=== PATIENT | female | born 1930 | race Two or more races ===

== ENCOUNTER 2017-06-24 18:03 | Observation (INO) | payer MEDICAID, OTHER ==
[2017-06-24] MEDS ORDERED: ASPIRIN 81 MG CHEWABLE TAB PO ONE (18:16)
[2017-06-24] MEDS ORDERED: NITROGLYCERIN 0.4 MG BTL SL PRN (18:16)
--- NOTE | 2017-06-24 18:17 | CPEKG ---
Heart Rate: 128 RR Interval: 469 QRSD Interval: 82 QT Interval: 356 QTC Interval: 520 QRS [place]: 18 T Wave [place]: 165 EKG Severity - ABNORMAL ECG - EKG Impression: ATRIAL FIBRILLATION, V-RATE 94-163 EKG Impression: MULTIPLE VENTRICULAR PREMATURE COMPLEXES EKG Impression: REPOLARIZATION ABNORMALITY, PROB RATE RELATED EKG Impression: PROLONGED QT INTERVAL EKG Impression: Similar to previous Electronically Signed By: Nick Dailey 24-Jun-2017 18:20:58
[2017-06-24] MEDS ORDERED: FUROSEMIDE 40 MG/4 ML VIAL IVP ONE (18:19)
--- NOTE | 2017-06-24 18:19 | EDPHY ---
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 No fever. No cough. She denies history of COPD or asthma but does wear oxygen at night. She takes Lasix at home but has noticed some increased swelling in her ankles last few days. Her breathing is worse when she lays flat. No nausea vomiting. She did feel diaphoretic at home. Her symptoms began while she was sitting. She does not have any chest pain. REVIEW OF SYSTEMS: Constitutional: denies: chills, fever, recent illness, recent injury EENTM: denies: blurred vision, double vision, nose congestion Respiratory: See HPI Cardiac: See HPI Gastrointestinal/Abdominal: denies: abdominal pain, diarrhea, nausea, vomiting, blood streaked stools Genitourinary: denies: dysuria, frequency, hematuria, pain Musculoskeletal: denies: joint pain, muscle pain Skin: denies: lesions, rash, jaundice, bruising Neurological: denies: headache, numbness, paresthesia, tingling, dizziness, weakness Hematologic/Lymphatic: denies: blood clots, easy bleeding, easy bruising Immunologic/allergic: denies: HIV/AIDS, transplant EXAM: GENERAL: Well-appearing, well-nourished and in no acute distress. HEAD: Atraumatic, normocephalic. EYES: Pupils equal round and reactive to light, extraocular movements intact, sclera anicteric, conjunctiva are normal. ENT: TMs normal, nares patent, oropharynx clear without exudates. Moist mucous membranes. NECK: Normal range of motion, supple without lymphadenopathy or JVD. LUNGS: Bilateral rales HEART: Irregular rhythm slightly tachycardic without murmurs, rubs or gallops. ABDOMEN: Soft, nontender, normoactive bowel sounds. No guarding, no rebound. No masses appreciated. BACK: No CVA tenderness, no spinal tenderness, step-offs or deformities EXTREMITIES: Normal range of motion, no pitting or edema. No clubbing or cyanosis. NEUROLOGICAL: Cranial nerves II through XII grossly intact. Normal speech, normal gait. 5/5 strength, normal movement in all extremities, normal sensation PSYCH: Normal mood, normal affect. SKIN: Warm, dry, normal turgor, no visible rashes or lesions. Source: Patient Exam Limitations: No limitations - Personal History Current Tetanus/Diphtheria Vaccine: Unsure Current Tetanus Diphtheria and Acellular Pertussis (TDAP): Unsure - Medical/Surgical History Hx Asthma: No Hx Chronic Respiratory Disease: No Hx Diabetes: No Hx Cardiac Disease: Yes Hx Renal Disease: No Hx Cirrhosis: No Hx Alcoholism: No Hx HIV/AIDS: No Hx Splenectomy or Spleen Trauma: No Other PMH: AFIB, HTN, arthritis - Social History Smoking Status: Former smoker Alcohol Use: Sober Drug Use: None Constitutional: Initial Vital Signs Temperature (C) 37.2 C 06/24/17 18:10 Heart Rate 112 H 06/24/17 18:10 Respiratory Rate 28 H 06/24/17 18:10 Blood Pressure 185/119 H 06/24/17 18:10 O2 Sat (%) 92 06/24/17 18:10 O2 Delivery Mode Nasal Cannula O2 (L/minute) 2 Allergies/Adverse Reactions: No Known Allergies Allergy (Verified 06/24/17 18:31) Home Medications: Medication Instructions Recorded Alprazolam 0.5mg Daily 12/04/11 Citalopram Hbr 10mg Daily 12/04/11 Furosemide 20mg Daily 12/04/11 Levothyroxine 12/04/11 Lisinopril [Zestril 40 mg (RX)] 40 mg PO DAILY 12/04/11 Metoprolol 100mg Daily 12/04/11 Pravastatin 40mg Daily 12/04/11 Warfarin 3mg 12/04/11 Alendronate Sodium 06/24/17 Tramadol HCl 06/24/17 Medical Decision Making - Diagnostics EKG Interpretation: An EKG obtained and was read and documented in trace view. Please see trace view for full reading and report. Atrial fibrillation, no acute ST changes. T- wave inversion diffusely Imaging Results: Imaging Impressions Chest X-Ray 06/24/17 18:17 Impression: Congestive heart failure.. Imaging: I viewed and interpreted images myself (Pulmonary edema, cardiomegaly) ED Course/Re-evaluation: 7:00 p.m. the patient is feeling better. Her blood pressure is decreased. We reviewed her test results. Her troponin is slightly elevated. Discussed with Dr. Leal who will admit to the medical service. We will transfer to [facility]. Differential Diagnosis: Partial list of the Differential diagnosis considered include but were not limited to; CHF, acute coronary disease, pneumonia, pulmonary edema and although unlikely based on the history and physical exam, I also considered PE, dissection, aneurysm, COPD exacerbation. Critical Care Time: Critical care time spent by me, Dr. Dailey exclusive with this patient was 35 minutes, exclusive of the PA time exclusive of procedures. The organ system that was at risk was cardiovascular and I gave diagnosis, treatment and admission to prevent worsening of the patient's condition - Data Points Laboratory Results: Laboratory Results 06/24/17 18:25 06/24/17 18:25 06/24/17 06/24/17 06/24/17 18:25 18:25 18:25 WBC 3.83 10^3/uL 10^3/uL (3.80-9.50) RBC 3.16 10^6/uL L 10^6/uL (4.18-5.33) Hgb 10.6 g/dL L g/dL (12.6-16.3) Hct 31.6 % L % (38.0-47.0) MCV 100.0 fL H fL (81.5-99.8) MCH 33.5 pg pg (27.9-34.1) MCHC 33.5 g/dL g/dL (32.4-36.7) RDW 14.1 % % (11.5-15.2) Plt Count 92 10^3/uL L 10^3/uL (150-400) MPV 10.1 fL fL (8.7-11.7) Neut % (Auto) 45.7 % % (39.3-74.2) Lymph % (Auto) 33.7 % % (15.0-45.0) [place] % (Auto) 17.5 % H % (4.5-13.0) Eos % (Auto) 2.3 % % (0.6-7.6) Baso % (Auto) 0.5 % % (0.3-1.7) Nucleat RBC Rel Count 0.0 % % (0.0-0.2) Absolute Neuts (auto) 1.75 10^3/uL 10^3/uL (1.70-6.50) Absolute Lymphs (auto) 1.29 10^3/uL 10^3/uL (1.00-3.00) Absolute Monos (auto) 0.67 10^3/uL 10^3/uL (0.30-0.80) Absolute Eos (auto) 0.09 10^3/uL 10^3/uL (0.03-0.40) Absolute Basos (auto) 0.02 10^3/uL 10^3/uL (0.02-0.10) Absolute Nucleated RBC 0.00 10^3/uL 10^3/uL (0-0.01) Immature Gran % 0.3 % % (0.0-1.1) Immature Gran # 0.01 10^3/uL 10^3/uL (0.00-0.10) PT 25.1 SEC H SEC (12.0-15.0) INR 2.34 H (0.83-1.16) APTT 48.8 SEC H SEC (23.0-38.0) Sodium 134 mEq/L L mEq/L (135-145) Potassium 4.2 mEq/L mEq/L (3.5-5.2) Chloride 98 mEq/L mEq/L (97-110) Carbon Dioxide 29 mEq/l mEq/l (22-31) Anion Gap 7 mEq/L L mEq/L (8-16) BUN 16 mg/dL mg/dL (7-23) Creatinine 0.6 mg/dL mg/dL (0.6-1.0) Estimated GFR > 60 Glucose 151 mg/dL H mg/dL (70-100) Calcium 8.6 mg/dL mg/dL (8.5-10.4) Troponin I 0.046 ng/mL H ng/mL (0.000-0.034) NT-Pro-B Natriuret Pep 4440 pg/mL H pg/mL (0-450) Medications Given: Nitroglycerin (Nitrostat) 0.4 mg SL Q5M PRN PRN Reason: Chest Pain Last Admin: 06/24/17 18:31 Dose: 0.4 mg Discontinued Medications Aspirin (Aspirin) 324 mg PO EDNOW ONE Stop: 06/24/17 18:17 Last Admin: 06/24/17 18:39 Dose: 324 mg Furosemide (Lasix Injection) 40 mg IVP EDNOW ONE Stop: 06/24/17 18:20 Last Admin: 06/24/17 18:34 Dose: 40 mg Departure - Departure Disposition: [facility] Inpatient Acute Clinical Impression: Congestive heart failure Qualifiers: Heart failure type: unspecified Heart failure chronicity: acute on chronic Qualified Code(s): I50.9 - Heart failure, unspecified Condition: Fair
[2017-06-24 18:31] LABS: PLATELET COUNT 92 10^3/uL (150-400)
[2017-06-24 18:47] LABS: INR 2.34 (0.83-1.16); PROTIME(PATIENT) 25.1 SEC (12.0-15.0)
[2017-06-24] MEDS ORDERED: ACETAMINOPHEN 325 MG TAB PO PRN (23:02)
--- NOTE | 2017-06-24 23:48 | PDGENHP ---
History and Physical - Chief Complaint SOB, CP - History of Present Illness The patient is an 87-year-old female with a history of myocardial infarction 20 years ago but no stents also atrial fibrillation on Coumadin who p/w shortness of breath over the last few days and pedal edema. No fever. No cough. She denies history of COPD or asthma but does wear oxygen at night (1.5 L). She takes Lasix at home but has noticed some increased swelling in her ankles last few days. Her breathing is worse when she lays flat. No nausea vomiting. She did feel diaphoretic at home. Her symptoms began while she was sitting. She felt some chest discomfort on arrival to the E.D. IN the E.D. she was given Lasix with significant improvement to her sx's. She appear comfortable at this time. CXR showed CHF, personally reviewed EKG is c/w AFib, rate controlled PMhx: AFIB, HTN, arthritis, CHF, CADm chronic anticagulation, dementia Soc: former smoker, she has 4 daughters and 2 sons FmHx: parents are History Information - Allergies/Home Medication List Allergies/Adverse Reactions: No Known Allergies Allergy (Verified 06/24/17 18:31) Home Medications: Alprazolam 0.5mg Daily 12/04/11 [Last Taken Unknown] Citalopram Hbr 10mg Daily 12/04/11 [Last Taken Unknown] Furosemide 20mg Daily 12/04/11 [Last Taken Unknown] Levothyroxine 12/04/11 [Last Taken Unknown] Lisinopril [Zestril 40 mg (RX)] 40 mg PO DAILY 12/04/11 [Last Taken Unknown] Metoprolol 100mg Daily 12/04/11 [Last Taken Unknown] Pravastatin 40mg Daily 12/04/11 [Last Taken Unknown] Warfarin 3mg 12/04/11 [Last Taken Unknown] Alendronate Sodium 06/24/17 [Last Taken Unknown] Tramadol HCl 06/24/17 [Last Taken Unknown] I have personally reviewed and updated: medical history, social history - Social History Smoking Status: Former smoker Alcohol Use: Sober Drug Use: None Review of Systems Review of Systems: ROS: 10pt was reviewed & negative except for what was stated in HPI & below Physical Exam Physical Exam: Temp Pulse Resp BP Pulse Ox 37.2 C 104 H 18 136/74 H 99 06/24/17 18:10 06/24/17 22:13 06/24/17 22:13 06/24/17 22:13 06/24/17 22:13 O2 (L/minute) 2 Constitutional: no apparent distress Eyes: PERRL, EOMI Ears, Nose, Mouth, Throat: moist mucous membranes, hearing normal Cardiovascular: irregularly irregular, edema (trace) Respiratory: reduced air movement Gastrointestinal: normoactive bowel sounds, soft, non-tender abdomen Skin: warm Neurologic: No AAOx3 Psychiatric: interacting appropriately, not anxious, encephalopathic Lymph, Heme, Immunologic: No petechiae Lab Data & Imaging Review 06/24/17 18:25 06/24/17 18:25 WBC 3.83 10^3/uL (3.80-9.50) 06/24/17 18:25 RBC 3.16 10^6/uL (4.18-5.33) L 06/24/17 18:25 Hgb 10.6 g/dL (12.6-16.3) L 06/24/17 18:25 Hct 31.6 % (38.0-47.0) L 06/24/17 18:25 MCV 100.0 fL (81.5-99.8) H 06/24/17 18:25 MCH 33.5 pg (27.9-34.1) 06/24/17 18:25 MCHC 33.5 g/dL (32.4-36.7) 06/24/17 18:25 RDW 14.1 % (11.5-15.2) 06/24/17 18:25 Plt Count 92 10^3/uL (150-400) L 06/24/17 18:25 MPV 10.1 fL (8.7-11.7) 06/24/17 18:25 Neut % (Auto) 45.7 % (39.3-74.2) 06/24/17 18:25 Lymph % (Auto) 33.7 % (15.0-45.0) 06/24/17 18:25 [place] % (Auto) 17.5 % (4.5-13.0) H 06/24/17 18:25 Eos % (Auto) 2.3 % (0.6-7.6) 06/24/17 18:25 Baso % (Auto) 0.5 % (0.3-1.7) 06/24/17 18:25 Nucleat RBC Rel Count 0.0 % (0.0-0.2) 06/24/17 18:25 Absolute Neuts (auto) 1.75 10^3/uL (1.70-6.50) 06/24/17 18:25 Absolute Lymphs (auto) 1.29 10^3/uL (1.00-3.00) 06/24/17 18:25 Absolute Monos (auto) 0.67 10^3/uL (0.30-0.80) 06/24/17 18:25 Absolute Eos (auto) 0.09 10^3/uL (0.03-0.40) 06/24/17 18:25 Absolute Basos (auto) 0.02 10^3/uL (0.02-0.10) 06/24/17 18: Absolute Nucleated RBC 0.00 10^3/uL (0-0.01) 06/24/17 18: Immature Gran % 0.3 % (0.0-1.1) 06/24/17 18: Immature Gran # 0.01 10^3/uL (0.00-0.10) 06/24/17 18:25 PT 25.1 SEC (12.0-15.0) H 06/24/17 18:25 INR 2.34 (0.83-1.16) H 06/24/17 18:25 APTT 48.8 SEC (23.0-38.0) H 06/24/17 18:25 Sodium 134 mEq/L (135-145) L 06/24/17 18:25 Potassium 4.2 mEq/L (3.5-5.2) 06/24/17 18:25 Chloride 98 mEq/L (97-110) 06/24/17 18:25 Carbon Dioxide 29 mEq/l (22-31) 06/24/17 18:25 Anion Gap 7 mEq/L (8-16) L 06/24/17 18:25 BUN 16 mg/dL (7-23) 06/24/17 18:25 Creatinine 0.6 mg/dL (0.6-1.0) 06/24/17 18:25 Estimated GFR > 60 06/24/17 18:25 Glucose 151 mg/dL (70-100) H 06/24/17 18:25 Calcium 8.6 mg/dL (8.5-10.4) 06/24/17 18:25 Troponin I 0.046 ng/mL (0.000-0.034) H 06/24/17 18:25 NT-Pro-B Natriuret Pep 4440 pg/mL (0-450) H 06/24/17 18:25 Assessment & Plan Assessment: #CHF exacerbation, unclear if systolic or diastolic #Indeterminate troponin, no active CP at this time #Acute Hypoxic respiratory Failure, improving #Afib, chronic, rate controlled with Metoprol #chronic Anticoagulation on warfarin, INR at [facility] #Anemia, with macrocytosis #Prolonged QT Plan: Observation much improved after IV Lasix, will schedule PO for the a.m TTE serial trops tele check Mg avoid meds which prolong the QT cont Metoprolol 50mg BID cont Warfarin, pharmacy to dose DNR confirmed at bedside
[2017-06-25] MEDS: METOPROLOL TARTRATE 50 MG TAB PO SCH ×2 (00:15→08:47)
[2017-06-25 04:52] LABS: PLATELET COUNT 79 10^3/uL (150-400)
[2017-06-25 04:59] LABS: INR 2.85 (0.83-1.16); PROTIME(PATIENT) 29.8 SEC (12.0-15.0)
[2017-06-25] MEDS ORDERED: FUROSEMIDE 40 MG TAB PO SCH (09:00)
--- NOTE | 2017-06-25 10:59 | ECHO ---
[email or web address] [address] [address] Main: [phone] Fax: Transthoracic Echocardiogram Name: TIN RUSSO MR#: [id number] Study Date: 06/25/2017 Study Time: 08:50 AM Date of : 1930 Age: 87 year(s) Height: ( ) Weight: ( ) BSA: Gender: Female Examination: Echo Indication: CHF Image Quality: Adequate Contrast: Requested by: Alan Leal BP: 137 mmHg/75 mmHg Heart Rate: Rhythm: Atrial fibrillation Indication: CHF Procedure Staff Tack Maker: Vicky Jennings MEGA Reading Physician: Cristiano Schwarz MD Requesting Provider: Measurements: Chambers Valvular Assessment AV/MV Valvular Assessment TV/PV Normal Normal Normal Name Value Range Name Value Range Name Value Range Ao Jessenia (MM): 3.5 cm (2.2 cm-3.7 AV Vmax: 1.03 m/s (1 m/s-1.7 TR Vmax: 2.82 mm/s ( - ) cm) m/s) TR PGmax: 32 mmHg ( - ) IVSd (2D): 0.7 cm (0.6 cm-1.1 AV maxP mmHg ( - ) syst. PAP: 42 mmHg ( - ) cm) LVOT Vmax: 0.83 m/s (0.7 m/s-1.1 PV Vmax: 0.90 m/s (0.6 m/s-0.9 LVDd (2D): 4.7 cm (3.9 cm-5.3 m/s) m/s) cm) MV E Vmax: 1.08 m/s ( - ) PV PGmax: 3 mmHg ( - ) LVDs (2D): 3.1 cm (2.1 cm-4 cm) LVPWd (2D): 0.9 cm ( - ) LVEF (BP): 67 % (>=55 %) RVDd(2D): 3.3 cm (1.9 cm-3.8 cmmm) Continued Measurements: Chambers Valvular Assessment AV/MV Valvular Assessment TV/PV Name Value Name Value Name Value LADs: 3.6 cm MV DecTime: 180 m/s CVP (est.): 10 mmHg LADs Lon.5 cm MV E' Septal: 0.06 m/s LA Area: 25.9 cm2 MV E/E' Septal: 17.90 LA Volume: 94 ml MV E/E' Lateral: 15.40 RA Area: 21.0 cm2 Additional Vessels Patient: TIN RUSSO Study Date: 06/25/2017 Page 1 of 2 08:50 AM Name Value Ao Ascendin.2 cm Findings: Left Ventricle: Normal size left ventricle. Normal global systolic LV function. EF is 67 %. Unable to assess diastolic dysfunction. Apical hypertrophy noted. Basal inferoseptal and inferior henning are thin and akinetic consistent with old ND. Right Ventricle: Normal size right ventricle. Normal RV function. Left Atrium: The left atrium is severely dilated. Small left to right shunt across the interatrial septum noted with color flow Doppler. LA index 62.7 ml/m2. Right Atrium: The right atrium is moderately dilated. Mitral Valve: There is mild thickening of the mitral valve leaflets. Mild-moderate mitral annular calcification. Mild to moderate mitral regurgitation. No mitral stenosis is present. Aortic Valve: The aortic valve is tri-leaflet and functions normally. Mild aortic cusp calcification is noted. No aortic valve stenosis is present. Trivial aortic valve regurgitation. Tricuspid Valve: The tricuspid valve is normal in appearance and function. Moderate tricuspid regurgitation is present. Right ventricular systolic pressure measures 42mmHg. The pulmonary artery pressure is mildly increased. Pulmonic Valve: The pulmonic valve is normal in appearance and function. Mild pulmonic valve regurgitation is noted. Aorta: Normal size aortic root measuring 3.5 cm. Normal size ascending aorta measuring 3.2 cm. IVC: The IVC is dilated. Pericardium: No pericardial effusion. (No Signature Object) Patient: TIN RUSSO Study Date: 06/25/2017 Page 2 of 2 08:50 AM [id number]
[2017-06-25] MEDS ORDERED: ACETAMINOPHEN 325 MG TAB PO PRN (11:46)
--- NOTE | 2017-06-25 13:18 | ASMTCASEMG ---
Living Arrangements What is your living Answers: With Spouse arrangement? Who do you live with? Type Of Residence What kind of residence do Answers: Apartment you live in? Discharge Plan Comments Coordination Status Comments Notes: Pts case discussed in morning rounds. Pt is a 87 y/o female admitted for CHF exacerbation. Pt is bulgarian speaking only. Pt lives at home w/ her and her daughter. PT has been ordered and awaiting recommendations. Needs are TBD at this time. CM to follow. Plan: TBD Date Signed: 06/25/2017 01:17 PM Electronically Signed By:SOHAIL Dill
--- NOTE | 2017-06-25 15:53 | HOSPPROG ---
Hospitalist Progress Note Assessment/Plan: # acute on chronic dCHF - better after lasix # a-fib - rate controlled - cont warfarin, metop # htn - cont metop, lisinopril # hld - pravastatin # OP - fosamax at home # depr - celexa # dispo - likely later today Subjective: feels much better Objective: Vital Signs Temp Pulse Resp BP Pulse Ox 36.7 C 88 20 141/75 H 98 06/25/17 13:55 06/25/17 13:55 06/25/17 13:55 06/25/17 13:55 06/25/17 13:55 Laboratory Results 06/25/17 03:57 06/25/17 03:57 06/24/17 06/25/17 06/26/17 05:59 05:59 05:59 Intake Total 200 400 Output Total 725 Balance 200 -325 PT 29.8 SEC (12.0-15.0) H 06/25/17 03:57 INR 2.85 (0.83-1.16) H 06/25/17 03:57 comfortable, bilat basilar rales, no resp distress ICD10 Worksheet Patient Problems: Problems Problem Status Onset Congestive heart failure Acute
[2017-06-25] MEDS ORDERED: WARFARIN SODIUM 3 MG TAB PO SCH (16:00)
--- NOTE | 2017-06-25 16:51 | GDS ---
[f rep st] DISCHARGE SUMMARY ALL DIAGNOSES: 1. Acute on chronic diastolic congestive heart failure. 2. Acute hypoxic respiratory failure due to the above. 3. Indeterminate troponin. 4. Permanent atrial fibrillation, rate controlled on metoprolol. 5. Macrocytic anemia. HOSPITAL COURSE: 87-year-old female, admitted with volume overload. Likely multifactorial in the se tting of diastolic dysfunction as well as mitral regurgitation. She received 40 mg of Lasix intraven ous in the emergency department with good response. On the day of discharge, she is ambulating in e todd with oxygen saturations in the mid 90s. Her breathing feels much better and her pedal edema h as resolved. She has wall motion abnormalities consistent with an old [place] on her echocardiogram. Tro ponins were indeterminate but no higher than 0.06. Discussed options including inpatient cardiology consultation which could potentially lead to procedu res. She is more interested in medical management of her heart disease. I discussed this with both of her daughters present, as well as ranch rider present. On discharge, I will increase her furosemide from 20 to 40 mg. She will need to have close followup both in clinic as well as with Cardiology. I am working to get her a close followup with Delon mcfadden on discharge. I think given her significant heart disease, that she needs Cardiology. Her atrial fibrillation is stable, INR is 2.85 on discharge. She is more anemic than previous, she should likely have an outpatient anemia workup. She is comfortable with this plan. She is discharged in stable condition. /[id number]/MODL
[2017-06-25 17:01] VITALS: BP 166/87
[2017-06-25] MEDS ORDERED: METOPROLOL TARTRATE 25 MG TAB PO SCH (21:00)
[2017-06-25] MEDS ORDERED: CITALOPRAM 20 MG TAB PO SCH (21:00)
[2017-06-25] MEDS ORDERED: PRAVASTATIN SODIUM 40 MG TAB PO SCH (21:00)
[2017-06-25] MEDS ORDERED: NON-FORMULARY NEW DRUG (Citalopram Hydrobromide [Celexa 10 Mg] 10 MG) PO SCH (21:00)
[2017-06-25] MEDS ORDERED: traMADol 50 MG TAB PO SCH (21:00)
[2017-06-25] MEDS ORDERED: ALPRAZolam 0.25 MG TAB PO SCH (21:00)
[2017-06-26] MEDS ORDERED: LEVOTHYROXINE 50 MCG TAB PO SCH (06:00)
[2017-06-26] MEDS ORDERED: LISINOPRIL 40 MG TAB PO SCH (09:00)
[2017-06-29] MEDS ORDERED: ALENDRONATE SODIUM 70 MG TAB PO SCH (07:00)
[2017-06-29] MEDS ORDERED: WARFARIN SODIUM 3 MG TAB PO SCH (16:00)
== END 2017-06-25 18:03 | disposition home or self-care (01) ==
LOC: CED 18:03 → CEDHOLD 19:11 → F2W 22:45 → OBSVTOIN 23:02 → INTOOBSV 23:02
PROVIDERS: ADMIT Family Medicine; ATTEND Family Medicine
DX: I50.23 Acute on chronic systolic (congestive) heart failure (principal); J96.01 Acute respiratory failure with hypoxia; R79.89 Other specified abnormal findings of blood chemistry; I48.91 Unspecified atrial fibrillation; D53.9 Nutritional anemia, unspecified; Z87.891 Personal history of nicotine dependence
CPT/HCPCS: 71046; 93005; 93306; 96374; 97161; 99291; G0378; G8978; G8979; 80048-PO; 82607-90; 83880-PO; 84484-PO; 85025-PO; 85610-PO; 85730-PO; J1940

== ENCOUNTER 2018-04-20 12:47 | Emergency (ER) | payer MEDICAID ==
[2018-04-20 13:17] VITALS: BP 127/74
--- NOTE | 2018-04-20 13:26 | EDPHY ---
H & P Time Seen by Provider: 04/20/18 13:01 HPI/ROS: This patient injured her left hand at 3:30 a.m. In the morning when she got to the bathroom and lost her balance slamming the dorsum of her hand against a door. She everted a complete fall due to this maneuver but developed swelling and pain to the dorsum of the left hand since that time with associated ecchymosis. She also has a small abrasion. She is brought in by her daughters for evaluation of this injury to rule out fracture. The patient's INR 0 was 2.2 on March 27 during the last check. She reports compliance with current medications. She had Tylenol with partial improvement her pain that she ranks as moderate intensity. She took Tylenol at 10:00 a.m. This morning. ROS: Constitutional: She felt well prior to the fall HEENT: No facial injuries Neuro: No headache or focal numbness tingling weakness Pulmonary: No complaints Musculoskeletal: She also complains of left shoulder pain but feels this is her chronic arthritic pain or of any acute injury. 7 point review of symptoms is performed and otherwise negative with exception of pertinent positives and negatives listed in HPI and ROS Smoking Status: Former smoker Physical Exam: Physical Exam Vital signs are normal. General: Pleasant 88-year-old female No acute distress HEENT: Atraumatic. Eyes: Pupils equal and react to light. Extraocular motions are intact. Lungs: No respiratory distress. Cardiac: Brisk capillary refill is intact throughout. Pulses are 2+ and symmetric in the affected extremity. Skin: No rash or pallor. Musculoskeletal: Atraumatic normal except for left hand Left hand: Patient has a half baseball size hematoma to the dorsum of her left hand with associated superficial abrasion with minimal bleeding. She has associated moderate tenderness to the metacarpals. No associated wrist swelling or tenderness. Neuro: Alert and oriented x3 with no sensorimotor deficits. Initial differential diagnosis: Hand hematoma-traumatic, fracture, strain, abrasion Constitutional: Initial Vital Signs Temperature (C) 36.6 C 04/20/18 13:08 Heart Rate 73 04/20/18 13:08 Respiratory Rate 18 04/20/18 13:08 Blood Pressure 127/74 H 04/20/18 13:08 O2 Sat (%) 93 04/20/18 13:08 O2 Delivery Mode Room Air Allergies/Adverse Reactions: No Known Allergies Allergy (Verified 04/20/18 13:05) Home Medications: Medication Instructions Recorded Citalopram Hydrobromide [celeXA 10 10 mg PO HS 12/04/11 MG] Levothyroxine [Synthroid 50 mcg 50 mcg PO DAILY06 12/04/11 (*)] Lisinopril [Zestril 40 mg (*)] 40 mg PO DAILY 12/04/11 Metoprolol Tartrate [Lopressor 25 25 mg PO BID 12/04/11 mg (*)] Pravastatin Sodium [Pravachol] 40 mg PO HS 12/04/11 Alendronate Sodium [Fosamax 70 MG 70 mg PO MO@0700 06/24/17 (*)] traMADol [Ultram 50 mg (*)] 50 mg PO HS 06/24/17 Acetaminophen [Tylenol 325mg (*)] 325 mg PO DAILY PRN 06/25/17 Furosemide [Lasix 40 MG (*)] 40 mg PO DAILY #30 tab 06/25/17 Warfarin Sodium 1.5 mg PO SUTUTHFRSA@16 06/25/17 Warfarin Sodium [Coumadin] 3 mg PO MOWE@16 06/25/17 MDM/Departure - MDM Diagnostics: Three-view hand x-ray: I discussed with Dr. Vides-negative for acute fracture Imaging Results: Imaging Impressions Hand X-Ray 04/20/18 13:13 Impression: 1. Large hematoma along the dorsum of the hand or wrist. 2. No acute fracture left hand. 3. Positive ulnar variance. Imaging: Discussed imaging studies w/ research and insights executive Radiologist ED Course/Re-evaluation: Ice is applied to the patient's hand we elevated her hand. Wound care to the abrasion by our tech-wound clean, bacitracin bandage applied, Daryl wrap applied to hematoma and sling I counseled patient and family regarding traumatic hematoma without evidence of fracture. - Depart Disposition: Home, Routine, Self-Care Clinical Impression: Traumatic hematoma of hand Qualifiers: Encounter type: initial encounter Laterality: left Qualified Code(s): S60.222A - Contusion of left hand, initial encounter Condition: Good Instructions: Hematoma (ED) Additional Instructions: Diagnosis: Hand hematoma Plan: Ice, 20 min at a time 3 times a day for the next 5-7 days. Avoid any prolonged heat to the area as this can cause calcification of the hematoma. elevation Gently clean abrasions daily Daryl wrap for the next few days Sling when up and about and elevate the hand whenever possible Tylenol for pain as needed Follow-up with primary care physician for any ongoing symptoms Return to the emergency department for any significant worsening despite the treatment plan Referrals: VICKI PAUL [Other] - As per Instructions
== END 2018-04-20 14:08 | disposition home or self-care (01) ==
LOC: CED 12:47
DX: S60.222A Contusion of left hand, initial encounter (principal); W01.198A Fall on same level from slipping, tripping and stumbling with subsequent striking against other object, initial encounter; Y92.002 Bathroom of unspecified non-institutional (private) residence as the place of occurrence of the external cause; Y99.9 Unspecified external cause status; Y93.9 Activity, unspecified; Z87.891 Personal history of nicotine dependence
CPT/HCPCS: 73130-PO; 99283-ER; A4565-ER